=== PATIENT | female | born 1985 ===

== ENCOUNTER 2018-10-23 06:57 | Day surgery (SDC) | payer OTHER ==
[2018-10-23 07:30] VITALS: BMI 25.7
[2018-10-23 07:44] VITALS: RESP 19; TEMP 97.8; O2SAT 100
--- NOTE | 2018-10-23 09:04 | CP.SDSHP ---
Same Day Surgery H & P - History Proposed Procedure: EGD Pre-Op Diagnosis: SEE NOTES - Previous Medical/Surgical History Misc: Other Pain: 4.Moderate Pain - Allergies Allergies: Allergies No Known Allergies Allergy (Verified 10/23/18 07:28) - Physical Exam General Appearance: N Vital Signs: Vital Signs 10/23/18 07:30 Temperature 97.8 F Pulse Rate 58 L Respiratory 19 Rate Blood Pressure 111/73 O2 Sat by Pulse 100 Oximetry Mental Status: Alert & Oriented x3 Neuro: WNL Heart: WNL Lungs: WNL GI: Other - {Optional Preform as Required} Breast: WNL Abdomen: Other Rectal: Other Integument: WNL : WNL Ortho: WNL ENT: WNL - Impression Pt. Evaluated Today:Candidate for Anesthesia & Procedure: Yes - Date & Time Time: 09:04 Short Stay Discharge - Short Stay Discharge Admitting Diagnosis/Reason for Visit: FUNCTIONAL DYSPEPSIA Disposition: HOME/ ROUTINE Referrals: Belinda Arguelles [Primary Care Provider] -
[2018-10-23] MEDS ORDERED: Propofol 10 mg/ml Inj (20 ML) ONE ×2 (09:08→09:16)
[2018-10-23] MEDS ORDERED: Belladonna-Phenobarbital PO ONE (09:15)
[2018-10-23] MEDS ORDERED: Pantoprazole 40 mg EC Tab PO ONE (09:15)
[2018-10-23 09:43] VITALS: PULSE 63
[2018-10-23 10:02] VITALS: BP 116/59
== END 2018-10-23 10:02 | disposition home or self-care (01) ==
LOC: C.ENDO 06:57
PROVIDERS: ATTEND Specialist
DX: K21.0 Gastro-esophageal reflux disease with esophagitis (principal); K29.50 Unspecified chronic gastritis without bleeding; K30 Functional dyspepsia
CPT/HCPCS: 43239; 84703; 88305; 88342; J2001; J2704